=== PATIENT | male | born 1975 | race Asian ===

== ENCOUNTER 2020-07-26 09:42 | Emergency (ER) | payer OTHER ==
[~2020-07-26] VITALS: Ht 154.9 cm; Wt 54.4 kg
[2020-07-26 09:52] VITALS: BP 149/99
--- NOTE | 2020-07-26 09:57 | NUR ---
Patient ambulated to bed 3. RN evaluating patient at bedside.
--- NOTE | 2020-07-26 10:00 | NUR ---
Pt c/o laceration on right anterior thigh without active bleeding s/p scratched by his own dog this morning. Pt denies was bitten by his dog. No sanguineous drainage noted on the lac area. DENIES N/V/D; SKIN IS PINK/WARM/DRY; AAOX4 WITH EVEN AND STEADY GAIT; LUNGS CLEAR BL; HR EVEN AND REGULAR; PT DENIES ANY FEVER, CP, SOB, OR COUGH AT THIS TIME; PATIENT STATES PAIN OF 3/10 AT THIS TIME; VSS; PATIENT POSITIONED FOR COMFORT; HOB ELEVATED; BEDRAILS UP X1; BED DOWN. ER MD MADE AWARE OF PT STATUS.
[2020-07-26 10:25] VITALS: BP 128/78
--- NOTE | 2020-07-26 10:25 | NUR ---
Patient discharged with v/s stable. Written and verbal after care instructions given and explained. Patient alert, oriented and verbalized understanding of instructions. Ambulatory with steady gait. All questions addressed prior to discharge. ID band removed. Patient advised to follow up with PMD. Rx of Neosproin given. Patient educated on indication of medication including possible reaction and side effects. Opportunity to ask questions provided and answered.
== END 2020-07-26 10:25 | disposition home or self-care (01) ==
LOC: MED 09:42
DX: S70.311A Abrasion, right thigh, initial encounter (principal); R03.0 Elevated blood-pressure reading, without diagnosis of hypertension; F17.200 Nicotine dependence, unspecified, uncomplicated; W54.0XXA Bitten by dog, initial encounter; Y93.89 Activity, other specified; Y92.89 Other specified places as the place of occurrence of the external cause; Y99.8 Other external cause status
CPT/HCPCS: 90471; 90715; 99283